=== PATIENT | female | born 1950 | race Caucasian/White ===

== ENCOUNTER 2018-06-24 10:46 | Emergency (ER) | payer MEDICARE, SELFPAY ==
[2018-06-24] VITALS (8 sets, daily range): BP systolic 120–151; BP diastolic 57–86; PULSE 84–114; RESP 13–20; TEMP 36.5–36.9; O2SAT 93–100
--- NOTE | 2018-06-24 11:37 | ED_ITS ---
HPI - SOB/Dyspnea General Chief Complaint: Shortness of Breath/Dyspnea Stated Complaint: Thinks blood clot in left leg, difficulty breathin Time Seen by Provider: 06/24/18 11:13 Source: patient and family Mode of arrival: ambulatory Limitations: no limitations History of Present Illness 67-year-old female, nonsmoker presents with her in the chief complaint of 3 weeks of worsening shortness of breath. She states she has become inc reasingly short of breath with any exertion or even talking. She has occasional cough but denies any sputum. She denies any chest pain and is not dizzy or lightheaded but has become profoundly fatigued. She denies nausea, vomiting or diarrhea. She has had no abdominal pain, dysuria or urgency. She denies recent travel, injury, surgery, history of clot or use of exogenous estrogens. She does state that over the past day or 2 her left calf has become quite swollen and tender Related Data Home Medications Medication Instructions Recorded Confirmed B Vitamins 1 dose PO DAILY 06/24/18 06/24/18 Cranactin 1 tab PO PRN PRN 06/24/18 06/24/18 No Known Home Medications 06/24/18 06/24/18 Vitamin C 1 tab PO DAILY 06/24/18 06/24/18 Vitamin D3 1 cap PO DAILY 06/24/18 06/24/18 lysine 1 tab PO DAILY 06/24/18 06/24/18 Allergies Allergy/AdvReac Type Severity Reaction Status Date / Time Sulfa (Sulfonamide Allergy Verified 06/24/18 11:05 Antibiotics) Review of Systems Constitutional Denies chills, Denies fever(s), Denies lethargy and Denies weakness Eyes Denies change in vision, Denies eye discharge, Denies irritation and Denies loss of vision ENT Ears, Nose, Mouth, and Throat: Denies change in voice, Denies neck pain and Denies sore throat Cardiovascular Denies chest pain, Denies irregular heart rhythm, Denies lightheadedness, Denies palpitations, Reports dyspnea, Reports dyspnea on exertion and Denies orthopnea Respiratory Reports cough, Reports dyspnea, Reports dyspnea on exertion and Denies wheezing Gastrointestinal Gastrointestinal: Denies abdominal pain, Denies change in bowel habits, Denies diarrhea, Denies nausea and Denies vomiting Genitourinary Denies hematuria, Denies flank pain, Denies urinary incontinence and Denies urinary urgency Musculoskeletal Denies neck pain Integumentary/Breasts Denies pruritus, Reports erythema, Denies rash, Reports skin swelling and Denies wounds Neurologic Denies confusion, Denies loss of vision and Denies weakness Psychiatric Denies anxiety, Denies confusion, Denies depression, Denies homicidal ideation and Denies suicidal ideation Endocrine Denies palpitations Hematologic/Lymphatic Denies easy bruising Allergic/Immunologic Denies wheezing PFSH Social History Smoking Status: Never smoker Social History Smoking Status: Never smoker Exam Narrative Exam Narrative: GENERAL: 67-year-old female appears stated age, in obvious distress, short of breath with minimal exertion tachypnea, minimal use of intercostals HEAD: Atraumatic. Normocephalic. No temporal or scalp tenderness. EYES: Pupils equal round and reactive. Extraocular motions intact. No scleral icterus. No injection or drainage. ENT: Nose without bleeding, purulent drainage or septal hematoma. Throat without erythema, tonsillar hypertrophy or exudate. Uvula midline. Airway patent. NECK: Trachea midline. No JVD or lymphadenopathy. Supple, nontender, no meningeal signs. CARDIOVASCULAR: Tachycardic but regular rhythm without murmurs, gallops, or rubs. RESPIRATORY: Clear to auscultation. Breath sounds equal bilaterally. No wheezes, rales, or rhonchi. GASTROINTESTINAL: Abdomen soft, non-tender, nondistended. No hepato- splenomegaly, or palpable masses. No guarding. EXTREMITIES: Left lower extremity notably swollen, warm and tender from the groin to the ankle BACK: Nontender without deformity or crepitance. No flank tenderness. NEURO: AOx3. SKIN: No rash or erythema. Initial Vital Signs Initial Vital Signs: Vital Signs Temperature 97.7 F 06/24/18 11:05 Pulse Rate 114 H 06/24/18 11:05 Respiratory Rate 16 06/24/18 11:05 Blood Pressure 151/86 H 06/24/18 11:05 Pulse Oximetry 95 06/24/18 11:05 Scores Wells' Criteria for PE Clinical signs and symptoms of PE: Yes PE is #1 Dx or equally likely: Yes Heart rate > 100: Yes Immobilization at least 3 days or surg in previous 4 weeks: No History of PE or DVT: No Hemoptysis: No Malignancy w/Treatment within 6 months or palliative: No Wells' PE Score total: 7.5 Course Orders Ordered: ED Orders 06/24/18 11:27 Consult to Respiratory Therapy Evaluate & Treat 06/24/18 11:37 US periph venous low extrem lt Stat 06/24/18 11:45 B Type Natriuretic Peptide Stat Complete Blood Count AUTO DIFF Stat 06/24/18 11:52 EKG-12 Lead Stat 06/24/18 11:54 CT angio chest PE protocol Stat 06/24/18 12:45 Urine Microscopic Stat Discontinued Medications Enoxaparin Sodium (Lovenox) 85 mg 1 mg/kg (85 mg) SUBCUT NOW ONE Stop: 06/24/18 11:58 Last Admin: 06/24/18 12:10 Dose: 85 mg Reevaluation(s) Reevaluation #1: high suspicion for PE, no D-dimer needed, straight to CT angiogram. Consultations Consultation #1: Discussion with hospitalist at [facility] whom she is the opinion that given her clot burden of common even in the absence of right heart strain, the patient is most appropriately cared for at facility which can provide a higher level of care Consultation #2: hospitalist at [facility] is happy to accept Vital Signs - 8 hr 06/24/18 11:05 06/24/18 11:27 06/24/18 12:00 Temperature 97.7 F 98.5 F Pulse Rate 114 H 84 Respiratory Rate 16 13 Blood Pressure 151/86 H Blood Pressure [Right Arm] 123/65 Pulse Oximetry 95 93 06/24/18 13:00 06/24/18 14:30 06/24/18 14:44 Temperature Pulse Rate 88 91 H 95 H Respiratory Rate 17 17 20 Blood Pressure Blood Pressure [Right Arm] 120/66 130/67 142/75 H Pulse Oximetry 96 97 100 06/24/18 16:01 Temperature Pulse Rate 94 H Respiratory Rate 17 Blood Pressure Blood Pressure [Right Arm] 122/57 L Pulse Oximetry 96 MDM - SOB/Dyspnea Lab Data Attestation: I reviewed the patient's lab results. Result diagrams: 06/24/18 11:45 06/24/18 Unknown Lab Results 06/24/18 06/24/18 06/24/18 Range/Units 11:45 12:45 Unknown WBC 7.8 (4.5-11.0) X10^3/uL RBC 4.23 (4.0-5.2) X10^6/uL Hgb 12.5 (12.0-16.0) g/dL Hct 37.6 (36-46) % MCV 88.8 (80-100) fL MCH 29.5 (26-34) PG MCHC 33.2 (30-36) % RDW 12.8 (11.6-14.8) % Plt Count 181 (150-400) X10^3/uL Neut % (Auto) 78.2 H (50-75) % Lymph % (Auto) 9.8 L (25-40) % [place] % (Auto) 8.1 (3-14) % Eos % (Auto) 3.4 (2-4) % Baso % (Auto) 0.5 (0-2) % Neut # (Auto) 6100 (5861-0418) /uL Lymph # (Auto) 800 L (3770-1613) /uL [place] # (Auto) 600 (0-900) /uL Eos # (Auto) 300 (0-450) /uL Baso # (Auto) 0 (0-100) /uL Sodium 139 (137-145) mmol/L Potassium 4.1 (3.4-5.1) mmol/L Chloride 103 (98-107) mmol/L Carbon Dioxide 25 (22-32) mmol/L BUN 16 (7-17) mg/dL Creatinine 0.60 (0.52-1.04) mg/dL Estimated GFR > 60.0 (>60) mL/min BUN/Creatinine Ratio 26.7 H (6-22) Glucose 96 (80-110) mg/dL Lactate (0.7-2.1) mmol/L Calcium 8.9 (8.4-10.2) mg/dL Magnesium 2.3 (1.6-2.3) mg/dL Total Creatine Kinase 54 (30-135) U/L CK-MB (CK-2) TNP CK-MB (CK-2) Rel Index TNP Troponin I < 0.012 (0.01-0.034) ng/mL B-Natriuretic Peptide < 100 (<100) Procalcitonin (<0.5) ng/mL Urine RBC 0-1/hpf (0-5/HPF) Urine WBC 0-1/hpf (0-5/HPF) Urine Bacteria None seen (None) Ur Culture Indicated? Cult not indicated 06/24/18 06/24/18 Range/Units Unknown Unknown WBC (4.5-11.0) X10^3/uL RBC (4.0-5.2) X10^6/uL Hgb (12.0-16.0) g/dL Hct (36-46) % MCV (80-100) fL MCH (26-34) PG MCHC (30-36) % RDW (11.6-14.8) % Plt Count (150-400) X10^3/uL Neut % (Auto) (50-75) % Lymph % (Auto) (25-40) % [place] % (Auto) (3-14) % Eos % (Auto) (2-4) % Baso % (Auto) (0-2) % Neut # (Auto) (7698-3264) /uL Lymph # (Auto) (2680-8062) /uL [place] # (Auto) (0-900) /uL Eos # (Auto) (0-450) /uL Baso # (Auto) (0-100) /uL Sodium (137-145) mmol/L Potassium (3.4-5.1) mmol/L Chloride (98-107) mmol/L Carbon Dioxide (22-32) mmol/L BUN (7-17) mg/dL Creatinine (0.52-1.04) mg/dL Estimated GFR (>60) mL/min BUN/Creatinine Ratio (6-22) Glucose (80-110) mg/dL Lactate 0.8 (0.7-2.1) mmol/L Calcium (8.4-10.2) mg/dL Magnesium (1.6-2.3) mg/dL Total Creatine Kinase (30-135) U/L CK-MB (CK-2) CK-MB (CK-2) Rel Index Troponin I (0.01-0.034) ng/mL B-Natriuretic Peptide (<100) Procalcitonin < 0.05 (<0.5) ng/mL Urine RBC (0-5/HPF) Urine WBC (0-5/HPF) Urine Bacteria (None) Ur Culture Indicated? Urine Dip Bedside Urine Glucose Negative Bedside Urine Bilirubin - Negative Bedside Urine Ketone - Negative Urine Specific [place] 1.015 Bedside Urine Occult Blood + Bedside Urine pH 7.0 Bedside Urine Protein - Negative Bedside Urine Urobilinogen - Negative Bedside Urine Nitrite - Negative Bedside Urine Leukocytes + 70 Esterase Imaging Data Venous US: Radiologist's impression: [address] [address] Ultrasound Report Signed Patient: Cleo Burger EMR#: [id number] : 1950Acct:[id number] Age/Sex: 67 / FDate of Service: 06/24/18 Loc: ED Accession Number: [id number] Procedure: US perip venous low extrem lt Ordering Provider: Kang De Los Santos D.O. PROCEDURE: US PERIP VENOUS LOW EXTREM LT INDICATIONS: pain, swelling, erythema, warmth TECHNIQUE: Real-time imaging, as well as color and pulse Doppler interrogation, were performed of the lower extremity deep veins from the inguinal ligament to the popliteal fossa. COMPARISON: None. FINDINGS: There is deep venous thrombosis within the superficial femoral vein and popliteal vein, occlusive and acute in appearance. IMPRESSION: Left lower extremity DVT as discussed, occlusive. Findings conveyed to the emergency room physician caring for the patient at 11:55 in the morning. Dictated by: Scar Contreras M.D. on 06/24/2018 at 12:15 Approved by: Scar Contreras M.D. on 06/24/2018 at 12:16 CT scan - chest: Radiologist's impression: [address] [address] [address] Scan Report Signed Patient: Cleo Burger EMR#: [id number] : 1950Acct:[id number] Age/Sex: 67 / FDate of Service: 06/24/18 Loc: ED Accession Number: [id number] Procedure: CT angio chest PE protocol Ordering Provider: Kang De Los Santos D.O. PROCEDURE: CT ANGIO CHEST PE PROTOCOL INDICATIONS: CP, SOB, tachycardia, painful swollen leg, hypoxic TECHNIQUE: After the administration of intravenous contrast, 2 mm thick sections acquired from the pulmonary apices to the posterior costophrenic angles. 3-dimensional maximum intensity projection (MIP) coronal and sagittal reformats were then acquired through the thorax. For radiation dose reduction, the following was used: automated exposure control, adjustment of mA and/or kV according to patient size. COMPARISON: None. FINDINGS: Image quality: Excellent. Pulmonary arteries: Pulmonary arteries are normal in size, and demonstrate definite bilateral multifocal occlusive and nonocclusive intraluminal filling defects diagnostic of central pulmonary embolism. The embolic load is greater on the right than the left, but upper lobe pulmonary emboli have a saddle embolus morphology bilaterally and the embolus within the right lower pulmonary artery is near occlusive. Several small distal branch emboli are seen in the lower lobes in addition to the more central emboli. Lungs and pleura: Lungs are clear. No pleural effusions or pneumothorax. Central and peripheral airways are patent. Mediastinum: Heart size is normal, without pericardial effusion. No mediastinal or hilar adenopathy. Thoracic aorta is normal in caliber and enhancement. Esophagus is normal in caliber, without hiatal hernia. Bones and chest wall: No suspicious bony lesions. Ribs and thoracic spine appear intact throughout. Thyroid gland appears normal where well visualized. No axillary or supraclavicular adenopathy. Abdomen: Visualized upper abdominal solid organs appear normal in the early arterial phase of enhancement. Note is made of a large hiatal hernia, behind the heart. Gastric inversion with the greater curvature of the stomach may be present IMPRESSION: Multifocal bilateral upper and lower lobe acute pulmonary emboli, right greater than left. Both occlusive and nonocclusive emboli are present as described above. Note is made of a large hiatal hernia behind the heart, with what appears to be gastric inversion with the greater curvature of the stomach directed cephalad. Dictated by: Scar Contreras M.D. on 06/24/2018 at 12:38 Approved by: Scar Contreras M.D. on 06/24/2018 at 12:43 Critical Care Time Critical Care Time: Yes Total Critical Care Time: 30 Attestation: The high probability of a clinically significant, sudden or life threatening deterioration of the [cardiovascular] system(s) required my full and direct attention, intervention and personal management. The aggregate critical care time was [30] minutes. This time is in addition to time spent performing reported procedures but includes the following: [x] Data Review and interpretation [x] Patient assessment and monitoring of vital signs [x] Documentation [x] Medication orders and management Discharge Plan Departure Patient Disposition: [facility] Clinical Impression: DVT (deep venous thrombosis) Qualifiers: DVT location: lower extremity Affected thrombotic vein of extremity: femoral Chronicity: acute Laterality: left Qualified Code(s): I82.412 - Acute embolism and thrombosis of left femoral vein Pulmonary emboli Qualifiers: Pulmonary embolism type: unspecified Chronicity: acute Acute cor pulmonale presence: without acute cor pulmonale Qualified Code(s): I26.99 - Other pulmonary embolism without acute cor pulmonale Prescriptions: No Action B Vitamins 1 dose PO DAILY RF: 0 Cranactin 1 tab PO PRN PRN (Reason: urinary issues) RF: 0 No Known Home Medications RF: 0 Vitamin C 1 tab PO DAILY RF: 0 Vitamin D3 1 cap PO DAILY RF: 0 lysine 1 tab PO DAILY RF: 0
--- NOTE | 2018-06-24 11:54 | DI.CT.S_ITS ---
PROCEDURE: CT ANGIO CHEST PE PROTOCOL INDICATIONS: CP, SOB, tachycardia, painful swollen leg, hypoxic TECHNIQUE: After the administration of intravenous contrast, 2 mm thick sections acquired from the pulmonary apices to the posterior costophrenic angles. 3-dimensional maximum intensity projection (MIP) coronal and sagittal reformats were then acquired through the thorax. For radiation dose reduction, the following was used: automated exposure control, adjustment of mA and/or kV according to patient size. COMPARISON: None. FINDINGS: Image quality: Excellent. Pulmonary arteries: Pulmonary arteries are normal in size, and demonstrate definite bilateral multifocal occlusive and nonocclusive intraluminal filling defects diagnostic of central pulmonary embolism. The embolic load is greater on the right than the left, but upper lobe pulmonary emboli have a saddle embolus morphology bilaterally and the embolus within the right lower pulmonary artery is near occlusive. Several small distal branch emboli are seen in the lower lobes in addition to the more central emboli. Lungs and pleura: Lungs are clear. No pleural effusions or pneumothorax. Central and peripheral airways are patent. Mediastinum: Heart size is normal, without pericardial effusion. No mediastinal or hilar adenopathy. Thoracic aorta is normal in caliber and enhancement. Esophagus is normal in caliber, without hiatal hernia. Bones and chest wall: No suspicious bony lesions. Ribs and thoracic spine appear intact throughout. Thyroid gland appears normal where well visualized. No axillary or supraclavicular adenopathy. Abdomen: Visualized upper abdominal solid organs appear normal in the early arterial phase of enhancement. Note is made of a large hiatal hernia, behind the heart. Gastric inversion with the greater curvature of the stomach may be present IMPRESSION: Multifocal bilateral upper and lower lobe acute pulmonary emboli, right greater than left. Both occlusive and nonocclusive emboli are present as described above. Note is made of a large hiatal hernia behind the heart, with what appears to be gastric inversion with the greater curvature of the stomach directed cephalad. Dictated by: Scar Contreras M.D. on 06/24/2018 at 12:38 Approved by: Scar Contreras M.D. on 06/24/2018 at 12:43
[2018-06-24 12:00] LABS: Add Manual Diff / Slide Review NO; Basophils Absolute Auto 0 /uL (0-100); Basophils Percent Auto 0.5 % (0-2); Eosinophils Absolute Auto 300 /uL (0-450); Eosinophils Percent Auto 3.4 % (2-4); Hematocrit 37.6 % (36-46); Hemoglobin 12.5 g/dL (12.0-16.0); Lymphocytes Absolute Auto 800 /uL (1100-4500); Lymphocytes Percent Auto 9.8 % (25-40); Mean Corpuscular HGB Conc 33.2 % (30-36); Mean Corpuscular Hemoglobin 29.5 PG (26-34); Mean Corpuscular Volume 88.8 fL (80-100); Monocytes Absolute Auto 600 /uL (0-900); Monocytes Percent Auto 8.1 % (3-14); Neutrophils Absolute Auto 6100 /uL (1500-7000); Neutrophils Percent Auto 78.2 % (50-75); Platelet Count 181 X10^3/uL (150-400); Red Blood Cell Count 4.23 X10^6/uL (4.0-5.2); Red Cell Distribution Width 12.8 % (11.6-14.8); White Blood Cell Count 7.8 X10^3/uL (4.5-11.0)
[2018-06-24 12:10] LABS: BUN Creatinine Ratio 26.7 (6-22); Blood Urea Nitrogen 16 mg/dL (7-17); Calcium 8.9 mg/dL (8.4-10.2); Carbon Dioxide 25 mmol/L (22-32); Chloride 103 mmol/L (98-107); Creatine Kinase 54 U/L (30-135); Estimated Glomerular Filt Rate > 60.0 mL/min (>60); Glucose 96 mg/dL (80-110); HEMOLYSIS < 15 (0-50); Lactate (Lactic Acid) 0.8 mmol/L (0.7-2.1); Magnesium 2.3 mg/dL (1.6-2.3); Potassium 4.1 mmol/L (3.4-5.1); Sodium 139 mmol/L (137-145)
[2018-06-24] MEDS: ENOXAPARIN 100 MG/ML SYRINGE 85 MG SUBCUT (12:10)
[2018-06-24 12:20] LABS: B Type Natriuretic Peptide < 100 (<100)
[2018-06-24 12:22] LABS: Troponin I < 0.012 ng/mL (0.01-0.034)
[2018-06-24 12:35] LABS: Procalcitonin < 0.05 ng/mL (<0.5)
[2018-06-24 12:49] LABS: Bacteria Urine None Seen
[2018-06-24 12:57] LABS: Culture Indicated Urine Cult Not Indicated; RBC Urine 0-1/HPF (0-5/HPF); WBC Urine 0-1/HPF (0-5/HPF)
== END 2018-06-24 17:10 | disposition short-term general hospital (02) ==
PROVIDERS: Emergency Provider Emergency Medicine
DX: I82.412 Acute embolism and thrombosis of left femoral vein (principal); I26.99 Other pulmonary embolism without acute cor pulmonale
CPT/HCPCS: 36591; 71275; 80048; 81003; 81015; 82550; 83605; 83735; 83880; 84145; 84484; 85025; 93005; 93971; 99283; 99285; J1650; Q9967